=== PATIENT | male | born 1990 | race Caucasian/White ===

== ENCOUNTER 2017-02-27 22:35 | Emergency (ER) | payer BC ==
[2017-02-27 22:49] VITALS: BP 150/92
--- NOTE | 2017-02-27 23:05 | ER Document Report ---
ED ENT - General Mode of Arrival: Ambulatory Information source: Patient TRAVEL OUTSIDE OF THE [place] IN LAST 30 DAYS: No - HPI Patient complains to provider of: Throat problem Onset: Just prior to arrival - Refer to HPI notes Context: Other - post tonsillectomy bleeding Similar symptoms previously: No Recently seen / treated by doctor: Yes <GRISELDA ZHU - Last Filed: 02/28/17 00:58> <JALEEL HASSAN - Last Filed: 03/05/17 11:37> - General Chief Complaint: Post Surgical Bleeding Stated Complaint: COUGHING UP BLOOD Time Seen by Provider: 02/27/17 22:57 Notes: Patient is a 26 year old male presenting to the emergency department for bleeding to his oropharynx. Patient had both peritonsilar abscesses and a tonsillectomy on 02/16/17-02/17/17. Patient states his surgery was preformed by Dr. Raaz at [facility] and he removed his tonsils on 02/17/17. Patient states tonight while he was shopping in [employer] he sneezed and then noticed he was bleeding from his oropharynx. Patient states he thinks the bleeding has stopped after he spit up some blood. Patient has been taking an antibiotic for his abscesses and surgery however, he does not know the name of the medication. Patient has also been taking ibuprofen for pain every 6 hours for about 2-3 weeks. (GRISELDA ZHU) Past Medical History - General Information source: Patient - Social History Smoking Status: Unknown if Ever Smoked Family History: None Patient has suicidal ideation: No Patient has homicidal ideation: No - Medical History Medical History: Negative Past Surgical History: Reports: Hx Tonsillectomy <GRISELDA ZHU - Last Filed: 02/28/17 00:58> Review of Systems - Review of Systems Constitutional: No symptoms reported EENT: See HPI, Other - oropharynx bleeding Cardiovascular: No symptoms reported Respiratory: No symptoms reported Gastrointestinal: No symptoms reported Genitourinary: No symptoms reported Male Genitourinary: No symptoms reported Musculoskeletal: No symptoms reported Skin: No symptoms reported Hematologic/Lymphatic: No symptoms reported Neurological/Psychological: No symptoms reported -: Yes All other systems reviewed and negative <GRISELDA ZHU - Last Filed: 02/28/17 00:58> Physical Exam - Vital signs Interpretation: Hypertensive <GRISELDA ZHU - Last Filed: 08/16/17 00:58> <JALEEL HASSAN - Last Filed: 03/05/17 11:37> - Vital signs Vitals: Temp Pulse Resp BP Pulse Ox 98.8 F 99 18 150/92 H 96 02/27/17 22:46 02/27/17 22:46 02/27/17 22:46 02/27/17 22:46 02/27/17 22:46 - Notes Notes: GENERAL: Alert, interacts well. Mild distress. HEAD: Normocephalic, atraumatic. EYES: Appear normal. Pupils equal, round, and reactive to light. ENT: Moist mucus membranes, tongue midline. Dry blood to the oropharynx. No active bleeding. Eschar to the right side and it is not present on the left. NECK: Full range of motion. Supple. Trachea midline. LUNGS: Clear to auscultation bilaterally, no wheezes, rales, or rhonchi. No respiratory distress. HEART: Regular rate and rhythm. No murmurs, gallops, or rubs. ABDOMEN: Soft, non-tender. Non-distended. Normal bowel sounds. EXTREMITIES: Moves all 4 extremities spontaneously. Normal strength. No edema. NEUROLOGICAL: Alert and oriented x3. Normal speech. No focal neurological deficits. GSC 15. PSYCH: Normal affect, normal mood. SKIN: Warm, dry, normal turgor. No rashes or lesions noted. (GRISELDA ZHU) Course - Laboratory Result Diagrams: 02/27/17 23:37 - Consults Lilia Ley Time consulted: 23:07 <GRISELDA ZHU - Last Filed: 02/28/17 00:58> - Laboratory Result Diagrams: 02/27/17 23:37 <JALEEL HASSAN - Last Filed: 03/05/17 11:37> - Vital Signs Vital signs: Temp Pulse Resp BP Pulse Ox 98.8 F 99 18 150/92 H 96 02/27/17 22:46 02/27/17 22:46 02/27/17 22:46 02/27/17 22:46 02/27/17 22:46 - Consults Lilia Ley Reason for consultation: 02/27/17 23:07 Contacted [facility] ENT induction machine operator for Dr. Raza to discuss patient. They will call back. 02/27/17 23:[address] Zuniga, [facility]. He will admit the patient for observation. 02/28/17 00:58 Contacted transfer line and the patient will be traveling via POV and needs to go to the ED to be admitted/observed. (GRISELDA ZHU) Discharge <GRISELDA ZHU - Last Filed: 02/28/17 00:58> <JALEEL HASSAN - Last Filed: 03/05/17 11:37> - Discharge Clinical Impression: Post tonsillectomy secondary hemorrhage Condition: Stable Disposition: HOME, SELF-CARE Additional Instructions: You have been seen and evaluated for bleeding following a tonsillectomy. At this point your hemoglobin is stable I have spoken with the ear nose and throat doctor MADINA DOBBINS who has accepted you to [facility]. We feel at this moment in time that you are stable enough to go by private vehicle. You are to go directly to the emergency department and they are awaiting arrival and report has been given. If you develop bleeding along the waist up at the nearest facility. Return for increasing worsening or new symptoms Scribe Attestation: 02/28/17 00:54 I personally performed the services described in the documentation reviewed the documentation recorded by my scribe in my presence and it accurately and completely records my words and actions (JALEEL HASSAN) Scribe Documentation - Scribe Written by Olivia:: Olivia Mijares 02/27/2017 23:10 acting as scribe for :: Eric <GRISELDA ZHU - Last Filed: 02/28/17 00:58>
[2017-02-27 23:50] LABS: ABSOLUTE EOSINOPHILS # (AUTO) 0.1 10^3/uL (0.0-0.6); ABSOLUTE LYMPHOCYTES (AUTO) 2.2 10^3/uL (0.5-4.7); ABSOLUTE MONOCYTES (AUTO) 0.9 10^3/uL (0.1-1.4); ABSOLUTE NEUT (AUTO) 5.7 10^3/uL (1.7-8.2); BASOPHILS % (AUTO) 0.3 % (0-2); EOSINOPHILS % (AUTO) 1.2 % (0-6); LYMPHOCYTES % (AUTO) 24.3 % (13-45); MEAN CORPUSCULAR HEMOGLOBIN 28.6 pg (27.0-33.4); MEAN CORPUSCULAR HGB CONC 34.8 g/dL (32.0-36.0); MEAN CORPUSCULAR VOLUME 82 fl (80-97); MONOCYTES % (AUTO) 9.9 % (3-13); RED BLOOD COUNT 5.24 10^6/uL (4.35-5.55); RED CELL DISTRIBUTION WIDTH 13.8 % (11.5-14.0); SEGMENTED NEUTROPHILS % (AUTO) 64.3 % (42-78); WHITE BLOOD COUNT 8.9 10^3/uL (4.0-10.5)
== END 2017-02-28 01:30 | disposition home or self-care (01) ==
LOC: ER 22:35
DX: K91.840 Postprocedural hemorrhage of a digestive system organ or structure following a digestive system procedure (principal)
CPT/HCPCS: 36415; 85025; 99283